=== PATIENT | female | born 1985 | race Caucasian/White ===

== ENCOUNTER 2019-06-23 15:23 | Outpatient (CLI) | payer OTHER ==
[2019-06-23] MEDS ORDERED: MULT-658 PO (15:45)
[2019-06-23] MEDS ORDERED: FLUT9.9S NS (15:45)
[2019-06-23] MEDS ORDERED: DIAZ2TAB3 PO (15:45)
[2019-06-23] MEDS ORDERED: TURM500C4 PO (15:45)
[2019-06-23] MEDS ORDERED: CALC-126 PO (15:45)
[2019-06-23] MEDS ORDERED: AZEL137S4 NAS (15:45)
[2019-06-23] MEDS ORDERED: CALC625T23 PO (15:45)
[2019-06-23] MEDS ORDERED: OMEG-76 PO (15:45)
[2019-06-23] MEDS ORDERED: NAPR-685 PO (15:45)
[2019-06-23] MEDS ORDERED: magnesium PO (15:45)
[2019-06-23 16:10] LABS: BASOPHILS # (AUTO) 0.08 x10^3/uL (0-0.1); BASOPHILS % (AUTO) 1 % (0-1); EOSINOPHILS # (AUTO) 0.12 x10^3/uL (0-0.4); EOSINOPHILS % (AUTO) 2 % (1-7); LYMPHOCYTES # (AUTO) 3.52 x10^3/uL (1-3.4); LYMPHOCYTES % (AUTO) 45 % (22-44); MD NO; MEAN CORPUSCULAR HEMOGLOBIN 28.9 pg (27.0-34.8); MEAN CORPUSCULAR HGB CONC 32.9 g/dL (32.4-35.8); MEAN CORPUSCULAR VOLUME 87.9 fL (80-100); MEAN PLATELET VOLUME 7.5 fL (7.4-10.4); MONOCYTES # (AUTO) 0.47 x10^3/uL (0.2-0.8); MONOCYTES % (AUTO) 6 % (2-9); NEUTROPHILS # (AUTO) 3.66 x10^3/uL (1.8-6.8); NEUTROPHILS % (AUTO) 47 % (42-75); PLATELET COUNT 421 x10^3/uL (130-400); RED CELL DISTRIBUTION WIDTH 13.3 % (9.6-15.2)
[2019-06-23 16:16] LABS: INTERNATIONAL NORMALIZED RATIO 0.98 (0.93-1.1); PROTHROMBIN TIME 10.3 Seconds (9.6-11.5)
== END 2019-06-23 23:59 | disposition home or self-care (01) ==
LOC: STAR 15:23
PROVIDERS: ATTEND Otolaryngology
DX: Z01.818 Encounter for other preprocedural examination (principal); J34.2 Deviated nasal septum; J34.3 Hypertrophy of nasal turbinates
CPT/HCPCS: 36415; 85025; 85610; 85730

== ENCOUNTER 2019-07-01 05:16 | Day surgery (SDC) | payer OTHER ==
[~2019-07-01] VITALS: Ht 157.5 cm; Wt 56.7 kg
[~2019-07-01 05:16] MED LIST: AZEL137S4 NAS; CALC-126 PO; CALC625T23 PO; DIAZ2TAB3 PO; FLUT9.9S NS; MULT-658 PO; NAPR-685 PO; OMEG-76 PO; TURM500C4 PO; magnesium PO
[2019-07-01] MEDS ORDERED: LACTATED RINGERS 1,000 ML IV SCH (06:15)
[2019-07-01] MEDS ORDERED: BACITRACIN OINT 500U/GM, 15 GM ONE (06:34)
[2019-07-01] MEDS ORDERED: THROMBIN 5,000 UNIT VIAL TP ONE (06:34)
[2019-07-01] MEDS ORDERED: OXYMETAZOLINE NASAL SPRAY 0.05%, 15ML ONE (06:34)
[2019-07-01] MEDS ORDERED: LIDOCAINE 1%-EPI 1:100K, 20ML ONE (06:34)
[2019-07-01] MEDS ORDERED: SCOPOLAMINE PATCH, 1.5MG PATCH.TD72 TD ONE ×2 (06:36→07:00)
[2019-07-01] MEDS ORDERED: GABAPENTIN 300 MG CAPSULE ONE (06:36)
[2019-07-01] MEDS ORDERED: ACETAMINOPHEN 500 MG TABLET ONE (06:37)
[2019-07-01] MEDS ORDERED: PROPOFOL 10 MG/ML, 20ML ONE ×2 (06:46→06:59)
[2019-07-01] MEDS ORDERED: SUCCINYLCHOLINE 20 MG/ML, 10ML ONE (06:46)
[2019-07-01] MEDS ORDERED: MIDAZOLAM 1 MG/ML, 2ML ONE (06:46)
[2019-07-01] MEDS ORDERED: FENTANYL PF 100 MCG/2ML ONE ×2 (06:46→07:42)
[2019-07-01] MEDS ORDERED: LIDOCAINE-MPF 2% ,5ML ONE ×2 (06:46→07:00)
[2019-07-01] MEDS ORDERED: CEFAZOLIN 1,000 MG ONE ×4 (06:57→06:59)
[2019-07-01] MEDS ORDERED: SODIUM CHLORIDE 0.9% PF 10ML ONE ×2 (06:57→06:59)
[2019-07-01] MEDS ORDERED: DEXAMETHASONE 4 MG/ML, 1ML ONE ×5 (06:57→07:01)
[2019-07-01] MEDS ORDERED: ACETAMINOPHEN 500 MG TABLET PO ONE (07:00)
[2019-07-01] MEDS ORDERED: GABAPENTIN 300 MG CAPSULE PO ONE (07:00)
[2019-07-01] MEDS ORDERED: KETOROLAC 30 MG/1 ML ONE (07:16)
[2019-07-01] MEDS ORDERED: LABETALOL 5MG/ML, 20ML IV PRN (07:30)
[2019-07-01] MEDS ORDERED: HYDROmorphone 2 MG/ML, 1ML IVPush PRN (07:30)
[2019-07-01] MEDS ORDERED: hydrALAzine 20 MG/ML, 1ML IV PRN (07:30)
[2019-07-01] MEDS ORDERED: MEPERIDINE/PF 25MG/ML,1ML IVPush PRN (07:30)
[2019-07-01] MEDS ORDERED: OXYcodone 5 MG/5 ML ORAL.SOL UDC PO PRN (07:30)
[2019-07-01] MEDS ORDERED: FENTANYL PF 100 MCG/2ML IV PRN (07:30)
[2019-07-01] MEDS ORDERED: EPHEDRINE 50 MG/ML, 1ML IVPush PRN (07:30)
[2019-07-01] MEDS ORDERED: ONDANSETRON 2MG/ML, 2ML IV PRN (07:30)
[2019-07-01] MEDS ORDERED: PROMETHAZINE 25 MG/ML, 1ML IV PRN (07:30)
[2019-07-01] MEDS ORDERED: ONDANSETRON 2MG/ML, 2ML ONE (07:35)
== END 2019-07-01 09:25 | disposition home or self-care (01) ==
LOC: OUT 05:16
PROVIDERS: ATTEND Otolaryngology
DX: J34.2 Deviated nasal septum (principal); J34.3 Hypertrophy of nasal turbinates; D68.51 Activated protein C resistance
CPT/HCPCS: 30140; 30520; 81025; J0330; J1100; J1885; J2250; J2405; J2704; J3010; J3490; J7120; J0690